=== PATIENT | female | born 1940 | race Caucasian/White ===

== ENCOUNTER 2023-06-26 23:56 | Emergency (ER) | payer MEDICARE, SELFPAY ==
[2023-06-26 23:57] VITALS: BMI 26.6
[2023-06-27] VITALS: BP 156/76
[2023-06-27 00:03] VITALS: BP 156/76
--- NOTE | 2023-06-27 00:35 | ED.GENMED ---
History of Present Illness
General
Chief Complaint: Fall
Source: ambulance crew
Exam Limitations: dementia
Time Seen by Provider: 06/27/23 00:22
Nursing documentation reviewed up to this point in time: agreed with
Travel History
Have you had any contact with someone who has COVID-19?: Unable to Answer
Do you have any symptoms of coronavirus? Fever > 100 degrees, chills, cough, shortness of breath, sore throat, loss of taste or smell, muscle aches, or headache?: Unable to Answer
History of Present Illness
History of Present Illness:
83-year-old female presents emergency department due to a fall. She was found on the floor. Staff stated that patient hit her head. It was an unwitnessed fall. Patient takes Eliquis. Transported by EMS.
Past History
Past History
ED Past Medical History: HTN, Psychiatric (Depression) and Other (Dementia, PNA, UTi)
ED Past Surgical History: Appendectomy
Social History
Tobacco: Non-smoker
Alcohol: Occasional
Drug: None
Personal:
Living: prison ([facility])
Employment: Retired
Family History
Family History: Hypertension; Negative Early CAD
Review of Systems
Review of Systems
Allergies reviewed?: Yes
All Other Systems: Not applicable
Phy Exam
Physical Exam
Physical Exam:
Physical Exam
General: no apparent distress, not acutely ill
Neck: supple. no meningeal signs. normal posterior pharynx
Heart: s1/s2 regular rate and rhythm, no murmur. equal radial
pulses.
HEENT: Pupils equal round reactive to light, EOMI
Lungs: no acute respiratory distress. clear bilaterally
Abdomen: normal bowel sounds. not tender. no CVAT
Neuro: alert and oriented to person. no focal neurological deficits cranial nerves II through XII intact
Skin: no rash
Psychiatric: well kept. interactive and cooperative
Extremities: no edema. no calf tenderness. negative homans. good distal pulses, bilateral leg contractures
Course
Orders/Labs/Results
Orders:
Orders
06/27/23 00:34
CT Cervical Spine W/o Iv Contr Urgent
Comment:
Reason For Exam: fall
06/27/23 00:35
CT Head W/o Iv Contrast Urgent
Comment:
Reason For Exam: fall on eliquis
Vital Signs
Initial and Last Documented VS:
Initial Vital Signs
Temp Pulse Resp BP Pulse Ox
97.4 F 66 22 156/76 96
06/27/23 00:00 06/27/23 00:00 06/27/23 00:00 06/27/23 00:00 06/27/23 00:00
Last Documented Vital Signs
Temp Pulse Resp BP Pulse Ox
97.4 F 72 21 156/76 98
06/27/23 00:00 06/27/23 01:15 06/27/23 01:15 06/27/23 00:03 06/27/23 00:45
MDM/Problems Addressed
Differential Diagnosis Includes:
Intracranial hemorrhage, head contusions
MDM/Problems Addressed:
83-year-old female with unwitnessed fall, mild head contusion. No acute findings on exam otherwise. CT head and cervical spine no acute findings. Stable for discharge.
Chronic conditions affecting care:
Dementia
Acute Exacerbation and/or Progression of Chronic Illness:
Dementia
*Radiology
Radiology exam reviewed: radiology read reviewed (CT head and cervical spine no acute findings)
*Pulse Oximetry
Patient hypoxic: no
*EKG
Interpreted by ED Provider?: NA
*Desktop Publisher Interpretation
Rate: Desktop Publisher- N/A
*Critical Care Note
Total Time (30-74mins, 75-104mins- exclusive of procedures): Not Applicable
Patient Management
Social determinants of health affecting care: Living situation
Escalation/DeEscalation of care consider admission/obs:
Admit not indicated
ED Attending Note
-
Portions of this chart may have been created with voice recognition software.� Occasional wrong word or��sound alike� substitutions may have occurred due to the inherent limitations of voice recognition software.
Discharge Plan
Departure
Patient Disposition: Prison/SNF
Date of Disposition: 06/27/23
Time of Disposition: 01:53
Patient with high blood pressure during this ER visit?: Yes
Condition: Good
Discharge Problem:
Fall, Contusion of head
Instructions: Preventing falls in adults, BLOOD PRESSURE
Prescriptions:
No Action
gabapentin 300 MG capsule
300 mg PO HS
escitalopram oxalate 20 MG tablet
20 mg PO DAILY
bupropion HCl 150 MG tablet sustained-release 12 hr
150 mg PO BID
carvedilol 25 mg tablet
25 mg PO BID
hydrochlorothiazide 50 mg tablet
50 mg PO QPM
lisinopril 40 mg tablet
40 mg PO DAILY
Saccharomyces boulardii [Probiotic (S.boulardii)] 250 mg Capsule
250 mg PO BID
apixaban 5 mg Tablet
5 mg PO BID
sennosides [Senna Laxative] 8.6 mg Tablet
8.6 mg PO HS Qty: 0 0RF
polyethylene glycol 3350 [HealthyLax] 17 gram Powder In Packet
17 g PO DAILY Qty: 0 0RF
ciprofloxacin HCl 500 mg Tablet
500 mg PO BID Qty: 0 0RF
pantoprazole 40 mg Tablet,Delayed Release (Dr/Ec)
40 mg PO DAILY Qty: 0 0RF
docusate sodium 100 mg Capsule
100 mg PO BID Qty: 0 0RF
ferrous sulfate 325 mg (65 mg iron) tablet
325 mg PO DAILY Qty: 60 0RF
acetaminophen 325 MG tablet
1,000 mg PO Q8HPRN PRN (Reason: pain) Qty: 0 0RF
doxycycline hyclate 100 mg capsule
100 mg PO BID Qty: 10 0RF
cyanocobalamin (vitamin B-12) 1,000 mcg tablet
1,000 mcg PO DAILY Qty: 30 0RF
Referrals:
Andrea Swanson MD [Family Provider] - Call in 1-3 days for appt
Interventions
Interventions:
ED- Fall Risk Assessment Last Done: 06/27/23 00:57
ED-Musculoskeletal Assessment Last Done: 06/27/23 00:57
ED- Neurological Assessment Last Done: 06/27/23 00:57
ED-Skin Assessment Last Done: 06/27/23 00:57
== END 2023-06-27 03:23 ==
LOC: EMR 23:56
PROVIDERS: EMERGENCY PHYSICIAN Emergency Medicine; FAMILY PHYSICIAN Family Medicine
DX: S00.03XA Contusion of scalp, initial encounter (principal); W19.XXXA Unspecified fall, initial encounter; I10 Essential (primary) hypertension; F03.93 Unspecified dementia, unspecified severity, with mood disturbance
CPT/HCPCS: 99284; 70450; 72125

== ENCOUNTER 2023-09-09 23:38 | Emergency (ER) | payer MEDICARE, SELFPAY ==
[2023-09-09 23:50] VITALS: BP 123/71
[2023-09-09 23:57] VITALS: BMI 23.3
[2023-09-10] VITALS (8 sets, daily range): BP systolic 95–143; BP diastolic 43–97
--- NOTE | 2023-09-10 03:24 | ED.GENMED ---
History of Present Illness
<BRUNA Hinds - Last Filed: 09/10/23 06:00>
General
Chief Complaint: Change in Mental Status
Source: patient and ambulance crew
Exam Limitations: dementia and other (dysarthria)
Time Seen by Provider: 09/10/23 03:32
Travel History
Have you had any contact with someone who has COVID-19?: Unable to Answer
Do you have any symptoms of coronavirus? Fever > 100 degrees, chills, cough, shortness of breath, sore throat, loss of taste or smell, muscle aches, or headache?: Unable to Answer
History of Present Illness
History of Present Illness:
83 year old female with hx of Alzheimer's, HTN, DM2, wheelchair bound per triage note was BIBA from [facility] with report of change in mental status that occurred just prior to arrival. Pt is reportedly more demented than normal and
her speech is more difficulty to understand than normal. Pt intermittently sleeping on arrival with no complaints. Pt with hx of dysarthria. Per triage note, staff at facility stated that they thought the pt was less responsive and had more slurring
than normal speech. Pt currently denies any complaints. Denies head ache, dizziness, chest pain, SOB, abdominal pain, n/v/d, fevers/chills.
Past History
<BRUNA Hinds - Last Filed: 09/10/23 06:00>
Past History
ED Past Medical History: HTN, Psychiatric (Depression) and Other (Dementia, PNA, UTi)
ED Past Surgical History: Appendectomy
Social History
Tobacco: Non-smoker
Alcohol: Occasional
Drug: None
Personal:
Living: fdc ([facility])
Employment: Retired
Family History
Family History: Hypertension; Negative Early CAD
Review of Systems
<BRUNA Hinds - Last Filed: 09/10/23 06:00>
Review of Systems
Allergies reviewed?: Yes
All Other Systems: ROS reviewed and negative except as documented in HPI and ROS
Constitutional: Reports no symptoms
EENT: Reports no symptoms
Respiratory: Reports no symptoms
Cardiac: Reports no symptoms
ABD/GI: Reports no symptoms
: Reports no symptoms
Musculoskeletal: Reports no symptoms
Skin: Reports no symptoms
Neurological: Reports no symptoms
Endocrine: Reports no symptoms
Hematologic/Lymphatic: Reports no symptoms
Psychiatric: Reports no symptoms
Phy Exam
<BRUNA Hinds - Last Filed: 09/10/23 06:00>
General Physical Exam
General Presentation: well appearing and no apparent distress
General age: appears stated age
General Skin: warm and dry
General Habitus: cachetic, debilitated and elderly
General Mental: alert and usual mental status
General Hydration: dry mucous membranes
General Chronic Disability: contractures (bilateral lower extremities), demented, diapers and non ambulatory
Cardiovascular Exam
Cardiovascular Exam: regular rate/rhythm, no edema, no gallop, no murmur and normal peripheral pulses
Pulmonary Exam
Pulmonary Exam: lungs clear, no respiratory distress, no rales, no crackles, no rhonchi, no wheezing and no cough
Neurological Exam
Neurological Exam: alert, oriented x3 and dysarthric
Musculoskeletal Exam
Musculoskeletal Exam: other (bilateral lower extremities contracted)
Skin Exam
Skin Exam: normal color and warm/dry
Psychiatric Exam
Psychiatric Exam: normal mood/affect
Course
<BRUNA Hinds - Last Filed: 09/10/23 06:00>
Orders/Labs/Results
Orders:
Orders
09/10/23 03:45
CT Head W/o Iv Contrast Urgent
Comment:
Reason For Exam: change in MS, increased confusion
Vital Signs
Initial and Last Documented VS:
Initial Vital Signs
Temp Pulse Resp BP Pulse Ox
98.2 F 75 19 123/71 97
09/09/23 23:50 09/09/23 23:50 09/09/23 23:50 09/09/23 23:50 09/09/23 23:50
Last Documented Vital Signs
Temp Pulse Resp BP Pulse Ox
98.2 F 75 19 123/65 96
09/09/23 23:50 09/09/23 23:50 09/09/23 23:50 09/10/23 01:21 09/10/23 01:21
<Anjelica El DO - Last Filed: 09/10/23 05:51>
Orders/Labs/Results
Orders:
Orders
09/10/23 03:45
CT Head W/o Iv Contrast Urgent
Comment:
Reason For Exam: change in MS, increased confusion
Vital Signs
Initial and Last Documented VS:
Initial Vital Signs
Temp Pulse Resp BP Pulse Ox
98.2 F 75 19 123/71 97
09/09/23 23:50 09/09/23 23:50 09/09/23 23:50 09/09/23 23:50 09/09/23 23:50
Last Documented Vital Signs
Temp Pulse Resp BP Pulse Ox
98.2 F 75 19 123/65 96
09/09/23 23:50 09/09/23 23:50 09/09/23 23:50 09/10/23 01:21 09/10/23 01:21
<BRUNA Hinds - Last Filed: 09/10/23 06:00>
MDM/Problems Addressed
Differential Diagnosis Includes:
dysarthria, dementia
MDM/Problems Addressed:
83 year old female BIBA form [facility] with reports of altered mental status.
Chronic conditions affecting care: DM, HTN, Neurological disorder (Alzheimer's dementia) and Other (wheelchair bound)
<BRUNA Hinds - Last Filed: 09/10/23 06:00>
*Critical Care Note
Total Time (30-74mins, 75-104mins- exclusive of procedures): Not Applicable
ED Attending Note
<BRUNA Hinds - Last Filed: 09/10/23 06:00>
-
Portions of this chart may have been created with voice recognition software.� Occasional wrong word or��sound alike� substitutions may have occurred due to the inherent limitations of voice recognition software.
<Anjelica El DO - Last Filed: 09/10/23 05:51>
ED Attending Note
Patient seen and examined by attending physician: Yes
I performed the substantive portion of visit, reviewed & personally made and approve the management plan that is documented in note by myself or EDGAR.: Yes
I performed a history and physical exam of patient and discussed management with resident, I reviewed resident's note and agree with documented findings and plan of care.: Yes
ED Attending Note:
This is a gracie 83-year-old woman who has history of dementia, chronic resident of [facility]. She is sent to the ED by fdc staff for concern for increased confusion, more so than her baseline and concern for some
slurred speech more pronounced than her baseline slurred/mildly garbled speech.
There has been no report of fall, no report of fever nor GI illness nor URI.
Upon arrival to the ED patient is awake and alert, pleasant, offers no complaints. She is unsure why she was sent to the ED but she denies recent fall, she is oriented x 3.
She states her appetite has been good, she has had no vomiting nor diarrhea. She denies chest pain, no coughing or shortness of breath.
GENERAL: 83-year-old woman appears her stated age, she is bright and alert, pleasant, appears in no acute distress. Appears somewhat chronically debilitated, bedbound but overall in no distress.
EYE: pupils equal and reactive. anicteric. The head is normocephalic, atraumatic.
NECK: Supple, nontender, no meningismus, no significant adenopathy.
ENT: posterior pharynx is clear, oral mucosa is moist. Minimally dry. Nares are patent without rhinorrhea.
CARDIAC: Regular rate and rhythm. no murmur.
LUNGS: Clear breath sounds bilaterally, no acute respiratory distress, no wheezes/rales/rhonchi
ABDOMEN: Soft, nondistended, without focal tenderness, no r/g, no cvat. normoactive BS.
NEUROLOGICAL: Alert and oriented x3, motor strength is 5/5 bilateral upper extremities. Bilateral lower extremities are chronically flexed/contracted.
SKIN: Warm and dry, normal color, skin intact. No rash.
MUSCULOSKELETAL: Bilateral lower extremities chronically flexed/contracted. No C/C/E. peripheral pulses are full and equal b/l. No palpable tenderness.
PSYCH: Normal and appropriate interaction.
83-year-old from [facility] presents via EMS with concern for increased confusion and slurred speech. Patient is bright and alert, oriented x 3.
She is noted to have a very minimally garbled speech but she is completely understandable.
She has consumed a cup of water, no difficulty swallowing and when lips and tongue are moist and her speech is much clearer.
Vital signs are stable, she is afebrile, normotensive.
I suspect patient is at her baseline. Will check CT of the head. If this is stable and unchanged we will plan to discharge back to [facility]dc for continued care.
09/10/2023 0549 AM
Patient remains bright and alert, no complaints and appears to be at her baseline.
CAT scan shows chronic microvascular disease but similar and unchanged from previous CT.
Will discharge back to the fdc for continued care.
Discharge Plan
Departure
Patient Disposition: Care Home/SNF
Date of Disposition: 09/10/23
Time of Disposition: 05:49
Patient with high blood pressure during this ER visit?: No
Condition: Good
Discharge Problem:
stable mild dementia
Instructions: Dementia (DC)
Prescriptions:
No Action
gabapentin 300 MG capsule
300 mg PO HS
escitalopram oxalate 20 MG tablet
20 mg PO DAILY
bupropion HCl 150 MG tablet sustained-release 12 hr
150 mg PO BID
carvedilol 25 mg tablet
25 mg PO BID
hydrochlorothiazide 50 mg tablet
50 mg PO QPM
lisinopril 40 mg tablet
40 mg PO DAILY
Saccharomyces boulardii [Probiotic (S.boulardii)] 250 mg Capsule
250 mg PO BID
apixaban 5 mg Tablet
5 mg PO BID
sennosides [Senna Laxative] 8.6 mg Tablet
8.6 mg PO HS Qty: 0 0RF
polyethylene glycol 3350 [HealthyLax] 17 gram Powder In Packet
17 g PO DAILY Qty: 0 0RF
ciprofloxacin HCl 500 mg Tablet
500 mg PO BID Qty: 0 0RF
pantoprazole 40 mg Tablet,Delayed Release (Dr/Ec)
40 mg PO DAILY Qty: 0 0RF
docusate sodium 100 mg Capsule
100 mg PO BID Qty: 0 0RF
ferrous sulfate 325 mg (65 mg iron) tablet
325 mg PO DAILY Qty: 60 0RF
acetaminophen 325 MG tablet
1,000 mg PO Q8HPRN PRN (Reason: pain) Qty: 0 0RF
doxycycline hyclate 100 mg capsule
100 mg PO BID Qty: 10 0RF
cyanocobalamin (vitamin B-12) 1,000 mcg tablet
1,000 mcg PO DAILY Qty: 30 0RF
Referrals:
Andrea Swanson MD [Family Provider] - Call in 1-3 days for appt
Interventions
Interventions:
*Risk Screen - Suicide Last Done: 09/09/23 23:50
*General Assessment Last Done: 09/09/23 23:50
*Neglect/Abuse Screening Last Done: 09/09/23 23:50
ED- Neurological Assessment Last Done: 09/09/23 23:57
ED Swallowing Screen Last Done: 09/09/23 23:57
Discharge Date and Time
Print Language: YAKUT
== END 2023-09-10 06:57 ==
LOC: EMR 23:38
PROVIDERS: EMERGENCY PHYSICIAN Emergency Medicine; FAMILY PHYSICIAN Family Medicine
DX: F02.A3 Dementia in other diseases classified elsewhere, mild, with mood disturbance (principal); R47.81 Slurred speech; G30.9 Alzheimer's disease, unspecified; I10 Essential (primary) hypertension; E11.9 Type 2 diabetes mellitus without complications; F32.A Depression, unspecified; M62.48 Contracture of muscle, other site; Z99.3 Dependence on wheelchair; Z87.440 Personal history of urinary (tract) infections; Z87.01 Personal history of pneumonia (recurrent); Z74.01 Bed confinement status
CPT/HCPCS: 99284; 70450

== ENCOUNTER 2023-09-28 03:02 | Inpatient (IN) | payer MEDICARE, SELFPAY ==
[2023-09-27 23:35] VITALS: BP 115/80; BMI 22.7
[2023-09-27 23:38] VITALS: BP 115/80
[2023-09-28] VITALS (9 sets, daily range): BP systolic 109–155; BP diastolic 56–78; BMI 21.8; BMI 20.7
--- NOTE | 2023-09-28 00:08 | ED.GENMED ---
History of Present Illness
General
Chief Complaint: Breathing Problem
Time Seen by Provider: 09/27/23 23:45
Travel History
Have you had any contact with someone who has COVID-19?: Unable to Answer
Do you have any symptoms of coronavirus? Fever > 100 degrees, chills, cough, shortness of breath, sore throat, loss of taste or smell, muscle aches, or headache?: Unable to Answer
History of Present Illness
History of Present Illness:
83 yo female w/ hx of dementia presents to the Emergency Department for evaluation of reported respiratory distress. per EMS report, pt had resp distress at 1900 tonight, received DuoNeb x 2 which resolved symptoms. Unclear why pt was not sent to ED
for >4 hours from onset of symptoms. History is limited due to her dementia, she offers no complaints. She denies any SOB or cough at this time. VS normal on arrival
Past History
Past History
ED Past Medical History: HTN, Psychiatric (Depression) and Other (Dementia, PNA, UTi)
ED Past Surgical History: Appendectomy
Social History
Tobacco: Non-smoker
Alcohol: Occasional
Drug: None
Personal:
Living: fdc ([facility])
Employment: Retired
Family History
Family History: Hypertension; Negative Early CAD
Review of Systems
Review of Systems
Allergies reviewed?: Yes
All Other Systems: ROS reviewed and negative except as documented in HPI and ROS
Phy Exam
Physical Exam
Physical Exam:
GEN: Well appearing, NAD, WDWN
HEENT: Oral mucosa moist, no scleral icterus
Cardiac: Regular rate and rhythm
Lung: No respiratory distress, no tachypnea, lungs CTAB, no wheezes/rales/rhonchi
MSK: No gross deformity or injuries
Skin: Good color, no pallor or jaundice, no rashes
Neuro: Alert, follows commands, moves all extremities freely
Psych: Calm, cooperative
Scores
Heart Failure Risk
Heart Failure Risk Score: Not Applicable
Course
Orders/Labs/Results
Orders:
Orders
09/28/23 00:00
CR Chest - 2 Views Urgent
Reason For Exam: SOB
09/28/23 00:39
Electrocardiogram (*1) Urgent
Reason for Study: Shortness of Breath
EKG- Treatment ONCE
09/28/23 00:51
Complete Blood Count/With Diff Urgent
Comprehensive Metabolic Panel Urgent
09/28/23 01:16
Type+Screen Urgent
Pantoprazole [Protonix IV] 80 mg IV NOW STA
09/28/23 01:28
Ipratropium/Albuterol Sulfate [Duoneb] 3 ml INH R NOW ONE
09/28/23 01:30
Pantoprazole 80 mg/100 ml Nss [Protonix] 80 mg in 100 ml IV Q10H
Abnormal Lab Results
09/28/23
00:51
RBC 2.62 L 10^6/uL
(4.20-5.40)
Hgb 8.1 L g/dL
(12.0-16.0)
Hct 24.6 L %
(37.0-47.0)
MCHC 32.9 L g/dL
(33.0-37.0)
Lymphocytes % 19.4 L %
(20.5-51.1)
BUN 39 H mg/dl
(7-17)
Creatinine 1.5 H mg/dL
(0.6-1.0)
Glucose 100 H mg/dl
(70-99)
09/28/23 00:51
09/28/23 00:51
Vital Signs
Initial and Last Documented VS:
Initial Vital Signs
Temp Pulse Resp BP Pulse Ox
98.2 F 75 22 115/80 97
09/27/23 23:35 09/27/23 23:35 09/27/23 23:35 09/27/23 23:35 09/27/23 23:35
Last Documented Vital Signs
Temp Pulse Resp BP Pulse Ox
98.2 F 78 23 111/59 98
09/27/23 23:35 09/28/23 01:00 09/28/23 01:00 09/28/23 01:00 09/28/23 00:15
MDM/Problems Addressed
MDM/Problems Addressed:
83 yo female w/ dementia sent in for SOB, lungs clear on exam and CXR unremarkable. Labs show acute decrease in Hgb, further assessment reveals maroon heme positive stool. Concern for lower GI bleed in an anticoagulated patient. PPI initiated for
gastric protection for any associated UGI bleed, will admit for further evaluation and management. Clinically stable, no indication for transfusion at this time
*Critical Care Note
Total Time (30-74mins, 75-104mins- exclusive of procedures): Not Applicable
ED Attending Note
-
Portions of this chart may have been created with voice recognition software.� Occasional wrong word or��sound alike� substitutions may have occurred due to the inherent limitations of voice recognition software.
Discharge Plan
Departure
Patient Disposition: Admit
Date of Disposition: 09/28/23
Time of Disposition: 01:33
Admit to: Med/Surg
Presentation/result/management discussed w/ accepting MD/DO: Hospitalist
Patient with high blood pressure during this ER visit?: No
Discharge Problem:
Acute lower GI bleeding
Prescriptions:
No Action
gabapentin 300 MG capsule
300 mg PO HS
escitalopram oxalate 20 MG tablet
20 mg PO DAILY
bupropion HCl 150 MG tablet sustained-release 12 hr
150 mg PO BID
carvedilol 25 mg tablet
25 mg PO BID
hydrochlorothiazide 50 mg tablet
50 mg PO QPM
lisinopril 40 mg tablet
40 mg PO DAILY
Saccharomyces boulardii [Probiotic (S.boulardii)] 250 mg Capsule
250 mg PO BID
apixaban 5 mg Tablet
5 mg PO BID
sennosides [Senna Laxative] 8.6 mg Tablet
8.6 mg PO HS Qty: 0 0RF
polyethylene glycol 3350 [HealthyLax] 17 gram Powder In Packet
17 g PO DAILY Qty: 0 0RF
ciprofloxacin HCl 500 mg Tablet
500 mg PO BID Qty: 0 0RF
pantoprazole 40 mg Tablet,Delayed Release (Dr/Ec)
40 mg PO DAILY Qty: 0 0RF
docusate sodium 100 mg Capsule
100 mg PO BID Qty: 0 0RF
ferrous sulfate 325 mg (65 mg iron) tablet
325 mg PO DAILY Qty: 60 0RF
acetaminophen 325 MG tablet
1,000 mg PO Q8HPRN PRN (Reason: pain) Qty: 0 0RF
doxycycline hyclate 100 mg capsule
100 mg PO BID Qty: 10 0RF
cyanocobalamin (vitamin B-12) 1,000 mcg tablet
1,000 mcg PO DAILY Qty: 30 0RF
Referrals:
Andrea Swanson MD [Family Provider] -
Interventions
Interventions:
*Risk Screen - Suicide Last Done: 09/27/23 23:40
*General Assessment Last Done: 09/27/23 23:40
*Neglect/Abuse Screening Last Done: 09/27/23 23:40
*ED COVID-19 Vaccine History Last Done: 09/27/23 23:40
ED- Cardiac Assessment Last Done: 09/27/23 23:45
ED- Pulmonary Assessment Last Done: 09/27/23 23:45
Discharge Date and Time
Print Language: BENINESE
[2023-09-28 00:55] LABS: % Basophils 0.2 % (0-2); % Eosinophils 2.3 % (0-6); % Immature Granulocytes 0.3 % (0-0.5); % Lymphocytes 19.4 % (20.5-51.1); % Neutrophils 71.8 % (42.2-75.2); Absolute Eosinophils 0.2 10^3/uL (0-0.7); Absolute Lymphocytes 1.7 10^3/uL (1.2-3.4); Absolute Monocytes 0.5 10^3/uL (0.1-0.6); Absolute Neutrophils 6.3 10^3/uL (1.4-6.5); Hematocrit 24.6 % (37.0-47.0); Hemoglobin 8.1 g/dL (12.0-16.0); Mean Corp Hgb Conc. 32.9 g/dL (33.0-37.0); Mean Corpuscular Hgb 30.9 pg (27.0-31.0); Mean Corpuscular Volume 93.9 fL (81.0-99.0); Mean Platelet Volume 9.6 fL (7.4-10.4); Nucleated Red Blood Cells % 0 %; Platelet Count 318 10^3/uL (130-400); Red Blood Cell Count 2.62 10^6/uL (4.20-5.40); Red Cell Dist. Width 12.6 % (11.5-14.5); White Blood Cell Count 8.8 10^3/uL (4.8-10.8)
[2023-09-28 01:19] LABS: ALT (SGPT) < 10 U/L (0-35); AST (SGOT) 18 U/L (14-36); Albumin 3.7 g/dl (3.5-5.0); Alkaline Phosphatase 76 U/L (38-126); Blood Urea Nitrogen 39 mg/dl (7-17); Calcium 9.4 mg/dl (8.4-10.2); Carbon Dioxide 26 mmol/L (22-30); Chloride 103 mmol/L (98-107); Estimated Creatinine Clearance 25 ml/min; Glucose 100 mg/dl (70-99); Potassium 4.6 mmol/L (3.5-5.1); Sodium 136 mmol/L (135-145); Total Bilirubin 0.3 mg/dl (0.2-1.3); Total Protein 6.3 g/dl (6.3-8.2); eGFR 34.58
[2023-09-28] MEDS: PROTONIX IV 80 MG IV (01:36)
[2023-09-28] MEDS: PROTONIX 100 IV (01:39)
[2023-09-28] MEDS: DUONEB 3 ML INH (01:46)
--- NOTE | 2023-09-28 02:55 | HPS.HSE ---
Family Physician
-
Family Physician: Andrea Swanson
Chief Complaint
-
'Respiratory Distress'
History of Present Illness
Patient is an 83y F with PMH significant for hypertension, neuropathy and dementia who presents to ED from local dementia care unit for evaluation of reported respiratory distress. Report from facility is that patient became SOB this evening.
She was apparently treated there with albuterol neb and her symptoms resolved. Several hours later she was sent to the ED for evaluation. Patient is unable to provide historical detail due to baseline dementia. At the time of my exam, she is
awake and alert and denies any complaints. She cannot state why she is in the hospital.
Work-up in the ED was unremarkable in regards to any respiratory issues / complaints.
Patient was noted to be slightly more anemic than baseline and stool was noted to be maroon / heme positive ad thus she is referred for hospitalization.
Medical History
Past Medical History
Past Medical History: Reports Other
Additional Past Medical History:
Hypertension
Senile Dementia
Anxiety / Depression
Peripheral Neuropathy
Osteoarthritis
History of PE
Anemia of Chronic Disease
Past Surgical History: Reports Appendectomy and Other
Social History
Unable to obtain full social history at this time due to: Dementia
Family History
Family History: Not pertinent
Allergies / Home Medications
Allergies reflects when Allergies were last updated in [facility].
Home Medications with original date entered in [facility]
Allergy/Medication List:
Allergies
Allergy/AdvReac Type Severity Reaction Status Date / Time
No Known Allergies Allergy Verified 06/27/23 00:09
Home Medications
bupropion HCl 150 mg tablet,12 hr sustained-release 150 mg PO BID Mental Health/Anxiety 04/17/21
escitalopram oxalate 20 mg tablet 20 mg PO DAILY Mental Health/Anxiety 04/17/21
gabapentin 300 mg capsule 300 mg PO BID neuropathy 04/17/21
Saccharomyces boulardii 250 mg capsule (Probiotic (S.boulardii)) 250 mg PO BID Supplement 11/25/22
apixaban 5 mg tablet 5 mg PO BID Autoimmune Disorder 11/25/22
carvedilol 25 mg tablet 25 mg PO BID Heart Failure 11/25/22
hydrochlorothiazide 50 mg tablet 50 mg PO DAILY Fluid Retention/Swelling 11/25/22
lisinopril 40 mg tablet 40 mg PO DAILY Blood Pressure 11/25/22
acetaminophen 325 mg tablet 1,000 mg (3.0769 x 325 mg) PO Q8HPRN PRN pain #0 tabs 11/28/22
albuterol sulfate 2.5 mg/3 mL (0.083 %) solution for nebulization 2.5 mg inhalation Q6H PRN wheezing 09/28/23
alprazolam 0.25 mg tablet 0.25 mg PO TID PRN anxiety 09/28/23
celecoxib 200 mg capsule 200 mg PO BID 09/28/23
cholecalciferol (vitamin D3) 50 mcg (2,000 unit) capsule (Vitamin D3) 50 mcg PO DAILY vitamin D deficiency 09/28/23
gabapentin 400 mg capsule 400 mg PO HS 09/28/23
Review of Systems
-
History Source: Patient
A 12 point ROS was completed and negative except as noted: Yes
Constitutional: Denies Fever or Chills
Respiratory: Denies Cough or Trouble Breathing
Cardiac: Denies Chest Pain or Palpitations
Abdomen/GI: Denies Abdominal Pain, Nausea, Vomiting or Diarrhea
: Denies Dysuria or Frequency
Neurological: Denies Dizzy or Headache
Psych: Denies Depression or Anxiety
Physical Exam
Vital Signs
Vital Signs
Temp Pulse Resp BP Pulse Ox
98.2 F 75 25 122/64 96
09/27/23 23:35 09/28/23 02:30 09/28/23 02:30 09/28/23 02:00 09/28/23 02:15
Physical Exam
General: Other (83y F in no acute distress.)
HEENT: Moist mucous membranes and PERRLA
Respiratory: Clear; No Wheezes, Rales or Rhonchi
Cardiac: S1/S2 and Regular Rhythm; No Murmur
GI: Soft, Non Tender, Non Distended and Normal Bowel Sounds
Musculoskeletal: No Clubbing, No Cyanosis and Other (Trace edema at ankles bilaterally. )
Neuro: Awake and Alert; No Oriented
Laboratory Results
-
09/28/23 00:51
09/28/23 00:51
Laboratory Results
Total Bilirubin 0.3 mg/dl (0.2-1.3) 09/28/23 00:51
AST 18 U/L (14-36) 09/28/23 00:51
ALT < 10 U/L (0-35) 09/28/23 00:51
Alkaline Phosphatase 76 U/L (38-126) 09/28/23 00:51
Impression/Plan
-
A/P: Patient is an 83y F with PMH significant for dementia, hypertension and chronic anemia who was sent to ED for evaluation of dyspnea and incidentally noted to have heme positive stool.
Heme Positive Stool
Acute on Chronic Anemia
- Admit for further evaluation and treatment.
- Hgb is currently 8.1 with an established baseline of 9 - 10 g/dL.
- She had a single value of > 10 in the past 2 years.
- Stool today noted to be heme positive on Eliquis.
- Will hold Eliquis for now.
- Follow H&H.
- No need for PPI infusion in patient without known or suspected varices and with maroon stools - change to BID for now.
- GI evaluation. ? endoscopic evaluation if family is amenable.
Respiratory Distress
- This was the reported reason for ED evaluation.
- Not hypoxemic. No complaints of dyspnea or evident SOB during her stay here.
- CXR unremarkable.
- Follow for any new / recurrent symptoms.
SHUBHAM on CKD
- SCr = 1.5 compared to baseline of 0.9.
- Hold high-dose thiazide diuretic and lisinopril acutely.
- Gentle IVFs overnight.
- Follow for return to baseline renal function.
Benign Hypertension
- Stable. Holding meds acutely as noted above.
Senile Dementia
- Patient appears at described baseline.
- Continue current med regimen and monitor for evidence of acute delirium.
History of PE
DVT Prophylaxis
- Hold Eliquis acutely given heme positive stools.
- SCDs for now.
Code Status: DNR
--- NOTE | 2023-09-28 03:16 | EDRN ---
This RN with assist of 2 changed pt out of her clothing into a hospital gown. Pt keeps stating her is walking around here lost somewhere and that she is not staying in the hospital 'I have to go home.' Explained to pt why she is staying in
the hospital but she does not agree with the reason. 'I'm fine. I just have to go home.' Pre-hospital linen removed from underneath pt. Pt incontinent of urine - perineal care provided and diaper changed. No stool/blood in diaper. Checked
rectal temp because pt felt hot = 98.7. Pt lying on stretcher with her legs crossed at her knees - LLE is on right side of stretcher and RLE on left side of stretcher.
--- NOTE | 2023-09-28 04:41 | EDRN ---
About 20 minutes ago, this RN came into room to answer pt call grigsby and found pt with her name modesto crumpled in her R hand holding the 24g IV catheter from her L wrist with protonix infusing also in her hand. Pt has multiple large areas of
blood on her gown. Both IV sites were no longer bleeding. Pt removed both her IVs but adamantly denies doing so. This RN cleaned pt up, put pt in new gown and attempted iv access couple times without success. VAT called for iv access and will be
down.
--- NOTE | 2023-09-28 04:47 | EDRN ---
VAT at bedside
--- NOTE | 2023-09-28 04:59 | EDRN ---
VAT inserted #[id number] R hand on second attempt - protonix restarted infusing. Covered site with web gauze. Floor called and updated on IV situation.
[2023-09-28] MEDS: NSS 1000 IV ×2 (06:17→22:59)
[2023-09-28 06:59] LABS: Hematocrit 22.7 % (37.0-47.0); Hemoglobin 7.5 g/dL (12.0-16.0); Mean Corpuscular Hgb 31.5 pg (27.0-31.0); Mean Corpuscular Volume 95.4 fL (81.0-99.0); Mean Platelet Volume 9.8 fL (7.4-10.4); Platelet Count 283 10^3/uL (130-400); Red Blood Cell Count 2.38 10^6/uL (4.20-5.40); Red Cell Dist. Width 12.7 % (11.5-14.5); White Blood Cell Count 7.4 10^3/uL (4.8-10.8)
[2023-09-28 07:07] LABS: Blood Urea Nitrogen 39 mg/dl (7-17); Calcium 9.1 mg/dl (8.4-10.2); Carbon Dioxide 24 mmol/L (22-30); Chloride 104 mmol/L (98-107); Estimated Creatinine Clearance 25 ml/min; Glucose 93 mg/dl (70-99); Potassium 4.2 mmol/L (3.5-5.1); Sodium 136 mmol/L (135-145); eGFR 34.58
[2023-09-28] MEDS: LEXAPRO 20 MG PO (09:22)
[2023-09-28] MEDS: NEURONTIN 300 MG PO (09:22)
[2023-09-28] MEDS: WELLBUTRIN SR (12 hour sustained release) 150 MG PO ×2 (09:22→20:01)
[2023-09-28] MEDS: COREG 25 MG PO ×2 (09:22→19:37)
--- NOTE | 2023-09-28 09:43 | W.PN.HOSP.TC ---
Today's Communication/Plan
-
see bold
Assessment / Plan
Assessment / Plan
83y F with PMH significant for dementia, hypertension and chronic anemia who was sent to ED for evaluation of dyspnea and incidentally noted to have heme positive stool.
Heme Positive Stool
Acute on Chronic Anemia
-Hemoglobin 7.2, was 8.1 yesterday, baseline greater 9-10
-GI following, continue Protonix 40 mg IV twice daily
-Transfuse for hemoglobin less than 7 point
Severe constipation
-Appreciate GI input, continue laxatives and enema as per GI
Respiratory Distress
- This was the reported reason for ED evaluation.
- Not hypoxemic. No complaints of dyspnea or evident SOB during her stay here.
- CXR unremarkable.
SHUBHAM on CKD
- SCr = 1.5 compared to baseline of 0.9.
- Hold high-dose thiazide diuretic and lisinopril acutely.
- Gentle IVFs, trend Cr
Benign Hypertension
- Stable. Holding meds acutely as noted above.
Senile Dementia
- Patient appears at described baseline.
- Continue current med regimen and monitor for evidence of acute delirium.
History of PE
DVT Prophylaxis
- Hold Eliquis acutely given heme positive stools.
- SCDs for now.
DVT prophylaxis�SCDs
Code Status - DNR
Physical Exam
General: No acute distress
HEENT: Normocephalic, Atraumatic, EOMI, MMM
Respiratory: Clear to Auscultation bilaterally
Cardiac: Normal S1/S2, Regular Rate and Rhythm
GI: Soft, Nontender, Nondistended, Normal Bowel Sounds
Extremities: No Clubbing, Cyanosis, or Edema
Neuro: Pleasantly confused
Psych: Calm, Cooperative
Derm: No Visible lesions
Anticipated Discharge: 24 - 48 hours
Subjective/Interval History
-
Date of Service: September 28, 2023
Nursing staff reports patient had an episode of burgundy stool. No lightheadedness, no dizziness.
Objective Data
-
Labs:
Laboratory Results
09/28/23 09/28/23
00:51 06:36
WBC 8.8 7.4
Hgb 8.1 L 7.5 L
Hct 24.6 L 22.7 L
Plt Count 318 283
Sodium 136 136
Potassium 4.6 4.2
Chloride 103 104
Carbon Dioxide 26 24
BUN 39 H 39 H
Creatinine 1.5 H 1.5 H
Glucose 100 H 93
Calcium 9.4 9.1
Total Bilirubin 0.3
AST 18
ALT < 10
Alkaline Phosphatase 76
Vital Signs:
Vital Signs
Temp Pulse Resp BP Pulse Ox
98.2 F 75 18 144/78 96
09/28/23 07:00 09/28/23 07:00 09/28/23 07:00 09/28/23 07:00 09/28/23 07:00
--- NOTE | 2023-09-28 10:11 | CON.GI ---
Addendum entered and electronically signed by Dulce Sanchez MD 09/28/23 15:35:
I saw and examined the patient.
The ONLINE PROJECT MANAGER's note was reviewed and I agree with the note.
83-year-old female with past medical history of dementia, depression, UTI, PE (on Eliquis), hypertension, peripheral neuropathy, osteoarthritis, anemia of chronic disease and hiatal hernia presents to the emergency room from half-way with
respiratory distress/shortness of breath. Patient was treated with DuoNeb, dose of pantoprazole labs were performed as well as chest x-ray and she was sent back to half-way. She was sent back to the emergency room 2 hours later. She was noted
to be slightly more anemic than baseline and stool was noted to be maroon/heme positive in the ER. She was referred for admission. We are asked to evaluate for the same. Patient is on Eliquis for history of PE. Unfortunately patient is demented
only oriented to self. Hemoglobin 7.5 down from 8.1, WBC 7.4, platelet 283, sodium 136, potassium 4.2, chloride 104, CO2 24, BUN 39, creatinine 1.5, glucose 93, total bilirubin 0.3, AST 18, ALT less than 10, alk phos 76
Impression:
Anemia/Maroon stool
Constipation -rectal stool burden
Chronic anticoagulation (Eliquis) history of PE
Dementia
plan
Continue monitor H&H
check iron panel
Okay with liquid diet
Daily bowel regimen
Discussed with patient's daughter by ONLINE PROJECT MANAGER-would like to hold off on future endoscopic procedures considering her age/comorbidities
Repeat abdominal x-ray in a.m. if continues to have stool burden we will give milk and molasses enema tomorrow
Addendum entered and electronically signed by YULIYA Marmolejo 09/28/23 12:22:
Discussed with daughter Tana [phone], who states that 20 years ago she had blood in her stools and that she thinks that her last colonoscopy was also about 20 years ago as well. She does not think that they found anything. Discussed
possibility of endoscopic procedures and she would like to hold at this time. Patient had large rectal fecal burden. Will initiate miralax, dulcolax suppository today. Then will give milk and molasses enema tomorrow after Eliquis off > 24 hrs.
Repeat imaging tomorrow afternoon.Patient also recently started on Celebrex for and hx of lower extremity severe contractures. No fam hx colon cancer/GI malignancy or IBD. Discussed with Dr. Elisa Garcias as well who also discussed with the patient
daughter earlier. Will keep patient on clears for now.
Original Note:
Consultation
-
Date/Time Consultation Requested: 09/28/23 0532
Date/Time Consultation Performed: 09/28/23 1000
Requesting Provider: Dr. Maldonado
Performing Provider: Dr. Sanchez/YULIYA Prado
Reason for Consultation: maroon stool/anemia
Medical History
Chief Complaint / HPI
Chief Complaint: SOB
History of Present Illness:
83-year-old female with past medical history of dementia, depression, UTI, PE (on Eliquis), hypertension, peripheral neuropathy, osteoarthritis, anemia of chronic disease and hiatal hernia presents to the emergency room from half-way with
respiratory distress/shortness of breath. Patient was treated with DuoNeb, dose of pantoprazole labs were performed as well as chest x-ray and she was sent back to half-way. She was sent back to the emergency room 2 hours later. She was noted
to be slightly more anemic than baseline and stool was noted to be maroon/heme positive in the ER. She was referred for admission. We are asked to evaluate for the same. Patient is on Eliquis for history of PE. Unfortunately patient is demented
only oriented to self. She does not recognize herself to be in the hospital. She cannot tell me the year. She thinks she is in a department store. She identifies only family is 'sisters'. She does have 2 daughters. At the present time she is
lying in the bed in no apparent distress. She is smiling. Appears very comfortable. Has had no signs of bleeding since arrival. Hemoglobin is currently 7.5 down from 8.1 on arrival. Her hemoglobin can range anywhere from 8.5-10.5 baseline. Her
BUN and creatinine are elevated compared to her baseline. Chest x-ray performed shows large hiatal hernia again seen. Minor left basilar opacity more likely representing subsegmental atelectasis. In addition to patient's Eliquis in the nursing
home it appears she is also on Celebrex twice daily. She is not on PPI. There is no GI history in chart. I did try to call patient's daughter Prem [phone] there was no answer. I also tried to call her other secondary contact
daughter Christina Mario [phone] there was no answer as well. At the present time patient denies any fevers, chills, nausea, vomiting. She cannot tell you her bowel colors. She denies any abdominal pain. She is sitting in bed smiling. She
elicits no discomfort with palpation of abdomen.
Past Medical History
Past Medical History: HTN and Other (Dementia, anxiety, peripheral neuropathy, osteoarthritis, PE, anemia chronic disease, hiatal hernia)
Past Surgical History: Appendectomy
Social History
Tobacco: Non-Smoker
Alcohol: None
Drug: None
Living: Long Term
Employment: Retired
Family History
Family History: Unable to Obtain (Patient with dementia)
Allergies / Home Medications
Allergy/AdvReac Type Severity Reaction Status Date / Time
No Known Allergies Allergy Verified 06/27/23 00:09
�Medication �Instructions �Recorded
bupropion HCl 150 mg tablet,12 hr 150 mg PO BID Mental Health/Anxiety 04/17/21
sustained-release
escitalopram oxalate 20 mg tablet 20 mg PO DAILY Mental 04/17/21
Health/Anxiety
gabapentin 300 mg capsule 300 mg PO BID neuropathy 04/17/21
Saccharomyces boulardii 250 mg 250 mg PO BID Supplement 11/25/22
capsule (Probiotic (S.boulardii))
apixaban 5 mg tablet 5 mg PO BID Autoimmune Disorder 11/25/22
carvedilol 25 mg tablet 25 mg PO BID Heart Failure 11/25/22
hydrochlorothiazide 50 mg tablet 50 mg PO DAILY Fluid 11/25/22
Retention/Swelling
lisinopril 40 mg tablet 40 mg PO DAILY Blood Pressure 11/25/22
acetaminophen 325 mg tablet 1,000 mg (3.0769 x 325 mg) PO 11/28/22
Q8HPRN PRN pain #0 tabs
albuterol sulfate 2.5 mg/3 mL 2.5 mg inhalation Q6H PRN wheezing 09/28/23
(0.083 %) solution for nebulization
alprazolam 0.25 mg tablet 0.25 mg PO TID PRN anxiety 09/28/23
celecoxib 200 mg capsule 200 mg PO BID 09/28/23
cholecalciferol (vitamin D3) 50 50 mcg PO DAILY vitamin D 09/28/23
mcg (2,000 unit) capsule (Vitamin deficiency
D3)
gabapentin 400 mg capsule 400 mg PO HS 09/28/23
Review of Systems
-
Unable to obtain full review of systems at this time due to: Dementia
Vital Signs
Temp Pulse Resp BP Pulse Ox
98.2 F 75 18 144/78 96
09/28/23 07:00 09/28/23 07:00 09/28/23 07:00 09/28/23 07:00 09/28/23 07:00
Physical Exam
Exam
General: No Apparent Distress
HEENT: Anicteric
Respiratory: Clear
Cardiac: Regular Rhythm
GI: Soft, Non Tender, Non Distended and Normal Bowel Sounds
Musculoskeletal: Other (Extremities crossed at the knees, contractured)
Skin: Warm and Dry
Neuro: Awake, Alert and Oriented (to person)
Psych: Calm and Confused
Results
WBC 7.4 10^3/uL (4.8-10.8) 06/17/24 06:36
Hgb 7.5 g/dL (12.0-16.0) L 09/28/23 06:36
Hct 22.7 % (37.0-47.0) L 09/28/23 06:36
MCV 95.4 fL (81.0-99.0) 09/28/23 06:36
Plt Count 283 10^3/uL (130-400) 09/28/23 06:36
Absolute Neuts (auto) 6.3 10^3/uL (1.4-6.5) 09/28/23 00:51
Sodium 136 mmol/L (135-145) 09/28/23 06:36
Potassium 4.2 mmol/L (3.5-5.1) 09/28/23 06:36
Chloride 104 mmol/L (98-107) 09/28/23 06:36
Carbon Dioxide 24 mmol/L (22-30) 09/28/23 06:36
BUN 39 mg/dl (7-17) H 09/28/23 06:36
Creatinine 1.5 mg/dL (0.6-1.0) H 09/28/23 06:36
Calcium 9.1 mg/dl (8.4-10.2) 09/28/23 06:36
Total Bilirubin 0.3 mg/dl (0.2-1.3) 09/28/23 00:51
AST 18 U/L (14-36) 09/28/23 00:51
ALT < 10 U/L (0-35) 09/28/23 00:51
Alkaline Phosphatase 76 U/L (38-126) 09/28/23 00:51
Diagnostic Image Results:
CXR
IMPRESSION:
Large hiatal hernia again seen.
Minor left basilar opacity most likely representing subsegmental atelectasis.
Electronically signed by Jeremías South MD, 09/28/2023 6:28 AM
Prior GI Procedures:
EGD: unable
Colonoscopy: unable
Assessment / Plan
-
83-year-old female with past medical history of dementia, depression, UTI, PE (on Eliquis), hypertension, peripheral neuropathy, osteoarthritis, anemia of chronic disease and hiatal hernia presents to the emergency room from half-way with
respiratory distress/shortness of breath. Patient was treated with DuoNeb, dose of pantoprazole labs were performed as well as chest x-ray and she was sent back to half-way. She was sent back to the emergency room 2 hours later. She was noted
to be slightly more anemic than baseline and stool was noted to be maroon/heme positive in the ER. She was referred for admission. We are asked to evaluate for the same. Patient is on Eliquis for history of PE. Unfortunately patient is demented
only oriented to self. Hemoglobin 7.5 down from 8.1, WBC 7.4, platelet 283, sodium 136, potassium 4.2, chloride 104, CO2 24, BUN 39, creatinine 1.5, glucose 93, total bilirubin 0.3, AST 18, ALT less than 10, alk phos 76
Impression:
Anemia
Maroon stool
Chronic anticoagulation (Eliquis) history of PE
Dementia
Large hiatal hernia (seen on chest imaging)
Respiratory distress, prior to arrival
Plan:
-Check Abd Xray to eval for stool burden
-Eliquis on Hold per IM
-Trend Hgb
-Continue PPI BID
-Will try to reach daughters again. Tana Silva [phone]
-Further recommendations to be forthcoming
-
-
Thank you for consultation and allowing me to participate in the patient's care. Please call the optical effects layout person GI physician during the after hours with any questions or concerns.
[2023-09-28] MEDS: NEURONTIN PO (11:37)
[2023-09-28] MEDS: DULCOLAX 10 MG RECTAL (12:36)
[2023-09-28] MEDS: MIRALAX 17 GRAMS PO ×2 (12:36→19:38)
--- NOTE | 2023-09-28 14:20 | PTCARENOTE ---
Patient transfer from 3w arrived 1400. Patient arrived in bed.
--- NOTE | 2023-09-28 14:45 | CM ---
Addendum entered by Christin Shelby 09/28/23 15:22:
Received call from Kathy at [facility]
Reports pt was full assist at baseline, able to feed self
Prior to d/c call [phone] - direct line to her unit
Original Note:
Chart reviewed and spoke with pts daughter
Pt lives at [facility] on a Memory Care unit
At baseline pt has dementia, wheel chair bound, assist with ADL's, can feed self
Daughter would like pt to return to [facility] when d/c'ed
PCP - Dr Lorie Swanson
Pharm - [facility]
Called [facility] [phone] to speak with [facility] [place] staff - LM with call back #
Plan - anticipate return to [facility] when medically stable
[2023-09-28 16:35] LABS: Hemoglobin 7.2 g/dL (12.0-16.0)
[2023-09-28] MEDS: SENOKOT 17.1999999999999993 MG PO (19:38)
[2023-09-28] MEDS: NEURONTIN 200 MG PO ×2 (19:39→22:57)
[2023-09-28] MEDS: NSS (PRESERVATIVE FREE) 10 ML IV (19:40)
[2023-09-28] MEDS: PROTONIX IV 40 MG IV (19:40)
[2023-09-29] VITALS (8 sets, daily range): BP systolic 119–196; BP diastolic 61–105
[2023-09-29 06:13] LABS: Hematocrit 21.6 % (37.0-47.0); Mean Corp Hgb Conc. 32.4 g/dL (33.0-37.0); Mean Corpuscular Hgb 31.4 pg (27.0-31.0); Mean Corpuscular Volume 96.9 fL (81.0-99.0); Platelet Count 266 10^3/uL (130-400); Red Blood Cell Count 2.23 10^6/uL (4.20-5.40); Red Cell Dist. Width 12.5 % (11.5-14.5); White Blood Cell Count 4.9 10^3/uL (4.8-10.8)
[2023-09-29 06:41] LABS: Blood Urea Nitrogen 26 mg/dl (7-17); Calcium 8.9 mg/dl (8.4-10.2); Carbon Dioxide 24 mmol/L (22-30); Chloride 104 mmol/L (98-107); Estimated Creatinine Clearance 37 ml/min; Glucose 80 mg/dl (70-99); Iron 52 ug/dl (37-170); Magnesium 1.9 mg/dl (1.6-2.3); Potassium 4.2 mmol/L (3.5-5.1); Sodium 136 mmol/L (135-145); eGFR 56.25
[2023-09-29 07:03] LABS: Ferritin 25.3 ng/ml (11.1-264.0)
[2023-09-29 07:34] LABS: Folate 10.3 ng/ml (2.76-20); Vitamin B12 317 pg/ml (239-931)
[2023-09-29] MEDS: MIRALAX 17 GRAMS PO ×2 (08:19→20:01)
[2023-09-29] MEDS: WELLBUTRIN SR (12 hour sustained release) 150 MG PO ×2 (08:23→20:00)
[2023-09-29] MEDS: LEXAPRO 20 MG PO (08:23)
[2023-09-29] MEDS: SENOKOT 17.1999999999999993 MG PO ×2 (08:24→19:59)
[2023-09-29] MEDS: COREG 25 MG PO ×2 (08:24→20:00)
[2023-09-29] MEDS: PROTONIX IV 40 MG IV ×2 (08:25→20:06)
[2023-09-29] MEDS: NSS (PRESERVATIVE FREE) 10 ML IV ×2 (08:25→20:06)
[2023-09-29] MEDS: NEURONTIN 200 MG PO (08:25)
--- NOTE | 2023-09-29 08:59 | W.PN.HOSP.TC ---
Addendum entered and electronically signed by Luis E Garcias MD 09/29/23 15:15:
SHUBHAM on CKD 3
Original Note:
Today's Communication/Plan
-
see bold
Assessment / Plan
Assessment / Plan
83y F with PMH significant for dementia, hypertension and chronic anemia who was sent to ED for evaluation of dyspnea and incidentally noted to have heme positive stool.
Worsening anemia secondary to chronic GI blood loss, exacerbated by Eliquis use
Severe iron deficiency anemia
-Hemoglobin 7.0, was 7.2, was 7.5, was 8.1 yesterday, baseline greater 9-10
-GI following, continue Protonix 40 mg IV twice daily
-Verbal consent obtained from daughter over the phone, transfuse 1 unit of packed red blood cells today
-Start ferrous sulfate, plan for discharge to [facility] tomorrow
Severe constipation
-Appreciate GI input, continue laxatives and enema as per GI
Respiratory Distress
- This was the reported reason for ED evaluation.
- Not hypoxemic. No complaints of dyspnea or evident SOB during her stay here.
- CXR unremarkable.
SHUBHAM on CKD
- SCr = 1.5 compared to baseline of 0.9.
- Hold high-dose thiazide diuretic and lisinopril acutely.
- Resolved status post IV fluids, trend creatinine
Benign Hypertension
- Stable. Holding high-dose thiazide diuretic and lisinopril acutely.
Senile Dementia
- Patient appears at described baseline.
- Continue current med regimen and monitor for evidence of acute delirium.
- From NH
History of PE
DVT Prophylaxis
- Discussed with daughter, will permanently discontinue Eliquis due to chronic GI blood loss
DVT prophylaxis�SCDs due to bloody stools
Code Status - DNR
Updated daughter
Total time spent to see the patient on the floor, examine the patient, review data and lab results, discuss treatment plan with patient, nursing staff around 35 minutes.
Physical Exam
General: No acute distress
HEENT: Normocephalic, Atraumatic, EOMI, MMM
Respiratory: Clear to Auscultation bilaterally
Cardiac: Normal S1/S2, Regular Rate and Rhythm
GI: Soft, Nontender, Nondistended, Normal Bowel Sounds
Extremities: No Clubbing, Cyanosis, or Edema
Neuro: Pleasantly confused
Psych: Calm, Cooperative
Derm: No Visible lesions
Anticipated Discharge: Within 24 hours
Subjective/Interval History
-
Date of Service: September 29, 2023
No black or bloody stools. Her stools are now brown. No fever, no vomiting.
Objective Data
-
Labs:
Laboratory Results
09/29/23
05:28
WBC 4.9
Hgb 7.0 L
Hct 21.6 L
Plt Count 266
Sodium 136
Potassium 4.2
Chloride 104
Carbon Dioxide 24
BUN 26 H
Creatinine 1.0
Glucose 80
Calcium 8.9
Vital Signs:
Vital Signs
Temp Pulse Resp BP Pulse Ox
98.3 F 77 20 119/73 98
09/29/23 07:13 09/29/23 08:24 09/29/23 07:13 09/29/23 08:24 09/29/23 07:13
I&O
09/28/23 09/29/23 09/30/23
06:59 06:59 06:59
Intake Total 1140 / 1140
Balance 1140 / 1140
--- NOTE | 2023-09-29 09:49 | W.PN.GI.CBS2 ---
Today's Communication / Plan
-
enema, xray
Assessment / Plan
-
83-year-old female with past medical history of dementia, depression, UTI, PE (on Eliquis), hypertension, peripheral neuropathy, osteoarthritis, anemia of chronic disease and hiatal hernia presents to the emergency room from [facility] with
respiratory distress/shortness of breath. Patient was treated with DuoNeb, dose of pantoprazole labs were performed as well as chest x-ray and she was sent back to custodial. She was sent back to the emergency room 2 hours later. She was noted
to be slightly more anemic than baseline and stool was noted to be maroon/heme positive in the ER. She was referred for admission. We are asked to evaluate for the same. Patient is on Eliquis for history of PE. Unfortunately patient is demented
only oriented to self. Hemoglobin 7.5 down from 8.1, WBC 7.4, platelet 283, sodium 136, potassium 4.2, chloride 104, CO2 24, BUN 39, creatinine 1.5, glucose 93, total bilirubin 0.3, AST 18, ALT less than 10, alk phos 76
Impression:
Anemia
Maroon stool
Chronic anticoagulation (Eliquis) history of PE
Dementia
Large hiatal hernia (seen on chest imaging)
Respiratory distress, prior to arrival
Was discussed with family yesterday with dementia plan for no endoscopic evaluation
Recommendation:
- Additional enema this am d/w RN
- Xray this afternoon
- If fecal burden improved GI will sign off pt will need bowel regimen going forward; if fecal burden still present will do additional enemas
Subjective
Subjective
Date of Service: September 29, 2023
per nurse pt with large BM after enema last pm
patient confused yelling at me for being in her house
Objective
Data Reviewed
Laboratory Data:
Laboratory Results
09/29/23 05:28
09/29/23 05:28
Laboratory Results
Phosphorus 4.0 mg/dl (2.5-4.5) 09/29/23 05:28
Magnesium 1.9 mg/dl (1.6-2.3) 09/29/23 05:28
Total Bilirubin 0.3 mg/dl (0.2-1.3) 09/28/23 00:51
AST 18 U/L (14-36) 09/28/23 00:51
ALT < 10 U/L (0-35) 09/28/23 00:51
Alkaline Phosphatase 76 U/L (38-126) 09/28/23 00:51
Vital Signs and I&O:
Vital Signs
Temp Pulse Resp BP Pulse Ox
98.3 F 77 20 119/73 98
09/29/23 07:13 09/29/23 08:24 09/29/23 07:13 09/29/23 08:24 09/29/23 07:13
I&O
09/28/23 09/29/23 09/30/23
06:59 06:59 06:59
Intake Total 1140 / 1140
Balance 1140 / 1140
Physical Exam
Physical Exam
GI: Non Distended and Non Tender
--- NOTE | 2023-09-29 13:52 | PN.CDI ---
CDI
- -
CDI:
Physician Documentation Request
Admit Date: 09/28/23 03:02
Dear Doctor Do,
Please review the following and provide your response in the progress notes.
Clinical Indicators:
- 09/27 PN 'SHUBHAM on CKD
Laboratory Tests
09/28/23 09/28/23 09/29/23
00:51 06:36 05:28
Creatinine 1.5 H 1.5 H 1.0
eGFR 34.58 34.58 56.25
Clarify which of the following accurately represents the patient's renal status:
SHUBHAM on CKD 2
SHUBHAM on CKD 3
Other
Stages of Chronic Kidney Disease*
Level Description GFR
G1 Normal or High >90
G2 Mildly decreased 60-89
G3a Mildly to moderately decreased 45-59
G3b Moderately to severely decreased 30-44
G4 Severely decreased 15-29
G5 Kidney failure <15
Use of terms such as suspected, likely, concern for, or probable (associated with a specific diagnosis that is being evaluated, monitored, or treated as if it exists) are acceptable and can be coded in the inpatient setting, when documented at the
time of discharge.
Thank you,
Buddy Cuellar RN
CDI Specialist
Please use your independent medical judgment in providing your response.
*Source: Kidney Disease: Improving Global Outcomes (KDIGO) 2012
--- NOTE | 2023-09-29 14:12 | PN.CDI ---
CDI
- -
CDI:
Physician Documentation Request
Admit Date: 09/28/23 03:02
Dear Doctor Do,
Please review the following and provide your response in the progress notes.
Clinical Indicators:
- 09/27 PN 'Heme positive stool...acute on chronic anemia'
- 'Hold Eliquis acutely given heme positive stools'
Laboratory Tests
09/28/23 09/28/23 09/29/23
00:51 16:24 05:28
Hgb 8.1 L 7.2 L 7.0 L
Please clarify the relationship between these conditions:
Yes, _acute anemia__ is related to/associated with/due to _eliquis__.
No, _acute anemia__ is not related to/associated with/due to __eliquis_ but it is due to . (Please specify)
Unable to determine
Use of terms such as suspected, likely, concern for, or probable (associated with a specific diagnosis that is being evaluated, monitored, or treated as if it exists) are acceptable and can be coded in the inpatient setting, when documented at the
time of discharge.
Thank you,
Buddy Cuellar RN
CDI Specialist
Please use your independent medical judgment in providing your response.
--- NOTE | 2023-09-29 16:01 | CM ---
Patient for possible discharge on 09/30/23 back to [facility]. Admissions notified.
[2023-09-29] MEDS: NSS 1000 IV (16:21)
[2023-09-29] MEDS: DUPHALAC/CHRONULAC PO (16:22)
[2023-09-29] MEDS: FEOSOL PO (16:22)
--- NOTE | 2023-09-29 17:39 | W.PN.UPDATE ---
Update Note
Progress Note Update
X-ray order sent I discussed with nursing. Concerned that patient will not tolerate enema she was not able to hold it. Therefore we will give suppository. X-ray improved but still with stool burden.
[2023-09-29] MEDS: DULCOLAX 10 MG RECTAL (18:28)
[2023-09-29] MEDS: XANAX 0.25 MG PO (20:01)
[2023-09-29] MEDS: DUPHALAC/CHRONULAC 20 GRAMS PO (20:14)
[2023-09-29] MEDS: TYLENOL 1000 MG PO (20:20)
[2023-09-30 00:51] VITALS: BP 194/105
[2023-09-30 02:00] VITALS: BP 164/79
--- NOTE | 2023-09-30 04:05 | DOWNTIME ---
There was a [employer] Downtime on 09/30/2023 from 0100 to 09/30/2023 at 0337. Downtime documentation of patient's care, including medication administrations, has been reconciled in the electronic record per guidelines. Refer to the
patient's paper chart under the miscellaneous tab to see printed paper medication records and downtime forms.
--- NOTE | 2023-09-30 06:24 | PTCARENOTE ---
Addendum entered by Sana Moreno RN 09/30/23 06:31:
Pt with 3 large dark stools mixed with hard stools after lactulose given.
Original Note:
Pt hypertensive at beginning of shift 194/105, 88, RR 26, Pox 94% RA, T-98.3. Manual BP 196/104, 84. Pt aaox1, however does not appear in distress. lungs diminished with fine crackles throughout. call center dispatcher SO[employer] CR[employer] SHEDDER made aware,no new orders. PRN Tylenol
and Ativan given, bp rechecked and slightly lower than initial bp 177/90.
[2023-09-30 07:08] VITALS: BP 184/88
[2023-09-30] MEDS: MIRALAX 17 GRAMS PO (07:46)
[2023-09-30] MEDS: FEOSOL 325 MG PO (07:48)
[2023-09-30] MEDS: WELLBUTRIN SR (12 hour sustained release) 150 MG PO (07:48)
[2023-09-30] MEDS: SENOKOT 17.1999999999999993 MG PO (07:49)
[2023-09-30] MEDS: COREG 25 MG PO (07:49)
[2023-09-30] MEDS: LEXAPRO 20 MG PO (07:49)
[2023-09-30] MEDS: DUPHALAC/CHRONULAC 20 GRAMS PO (07:49)
[2023-09-30] MEDS: PROTONIX IV 40 MG IV (07:53)
[2023-09-30] MEDS: NSS (PRESERVATIVE FREE) 10 ML IV (07:53)
[2023-09-30 08:50] LABS: Hematocrit 27.6 % (37.0-47.0); Mean Corp Hgb Conc. 32.6 g/dL (33.0-37.0); Mean Corpuscular Hgb 32.3 pg (27.0-31.0); Mean Corpuscular Volume 98.9 fL (81.0-99.0); Mean Platelet Volume 9.8 fL (7.4-10.4); Platelet Count 281 10^3/uL (130-400); Red Blood Cell Count 2.79 10^6/uL (4.20-5.40); White Blood Cell Count 5.6 10^3/uL (4.8-10.8)
--- NOTE | 2023-09-30 08:51 | W.PN.HOSP.TC ---
Today's Communication/Plan
-
Discharge today
Assessment / Plan
Assessment / Plan
83y F with PMH significant for dementia, hypertension and chronic anemia who was sent to ED for evaluation of dyspnea and incidentally noted to have heme positive stool.
Worsening anemia secondary to chronic GI blood loss, exacerbated by Eliquis use
Severe iron deficiency anemia
-Hemoglobin 7.0, was 7.2, was 7.5, was 8.1 yesterday, baseline greater 9-10
-GI following, currently on Protonix 40 mg IV twice daily, will discharge on Protonix 40 mg p.o. daily
-Hemoglobin 9.0 today, increased from 7.0 status post 1 unit of packed red blood cells on 09/28
-Started ferrous sulfate, plan for discharge to skilled nursing today
Severe constipation
-Appreciate GI input, continue laxatives and enema as per GI
-Continue MiraLAX twice a day and sennosides twice a day upon discharge
Iatrogenic fluid overload
-Give Lasix 40 mg IV x 2
-Discharged on Lasix 40 mg p.o. daily
-Permanently discontinue her hydrochlorothiazide 50 mg daily
Respiratory Distress
- This was the reported reason for ED evaluation.
- Not hypoxemic. No complaints of dyspnea or evident SOB during her stay here.
- CXR unremarkable.
SHUBHAM on Stage 3 CKD
- SCr = 1.5 compared to baseline of 0.9.
- Hold high-dose thiazide diuretic and lisinopril acutely.
- Resolved status post IV fluids, trend creatinine
Benign Hypertension
- Stable. Resume lisinopril 20 mg daily, add hydralazine 25 mg twice a day
Senile Dementia
- Patient appears at described baseline.
- Continue current med regimen and monitor for evidence of acute delirium.
- From NH
History of PE
DVT Prophylaxis
- Discussed with daughter, will permanently discontinue Eliquis due to chronic GI blood loss
DVT prophylaxis�SCDs due to bloody stools
Code Status - DNR
Updated daughter on phone 09/28
Physical Exam
General: No acute distress
HEENT: Normocephalic, Atraumatic, EOMI, MMM
Respiratory: Clear to Auscultation bilaterally
Cardiac: Normal S1/S2, Regular Rate and Rhythm
GI: Soft, Nontender, Nondistended, Normal Bowel Sounds
Extremities: No Clubbing, Cyanosis, or Edema
Neuro: Pleasantly confused
Psych: Calm, Cooperative
Derm: No Visible lesions
Anticipated Discharge: Today
Subjective/Interval History
-
Date of Service: September 29, 2023
Patient has no complaints. She is having multiple bowel movements, brown. No fever, no vomiting.
Objective Data
-
Labs:
Laboratory Results
09/29/23
05:28
WBC 4.9
Hgb 7.0 L
Hct 21.6 L
Plt Count 266
Sodium 136
Potassium 4.2
Chloride 104
Carbon Dioxide 24
BUN 26 H
Creatinine 1.0
Glucose 80
Calcium 8.9
Vital Signs:
Vital Signs
Temp Pulse Resp BP Pulse Ox
98.3 F 77 20 119/73 98
09/29/23 07:13 09/29/23 08:24 09/29/23 07:13 09/29/23 08:24 09/29/23 11:31
I&O
09/28/23 09/29/23 09/30/23
06:59 06:59 06:59
Intake Total 1140 / 1140
Balance 1140 / 1140
[2023-09-30 09:29] LABS: Blood Urea Nitrogen 18 mg/dl (7-17); Calcium 9.3 mg/dl (8.4-10.2); Carbon Dioxide 24 mmol/L (22-30); Chloride 104 mmol/L (98-107); Estimated Creatinine Clearance 42 ml/min; Glucose 79 mg/dl (70-99); Potassium 3.8 mmol/L (3.5-5.1); Sodium 136 mmol/L (135-145); eGFR > 60.00
--- NOTE | 2023-09-30 09:45 | W.PN.GI.CBS2 ---
Addendum entered and electronically signed by Ariana Velasquez MD 09/30/23 14:03:
I saw and examined the patient.
The COMIC BOOK WRITER or PA's note was reviewed and I agree with the note.
Comment: 83 yo F pmh as below including dementia GI consulted for fecal impaction.
Improved s/p enema and suppository.
Xray reviewed.
Continue bowel regimen.
GI will sign off pls call with ?s
Original Note:
Today's Communication / Plan
-
Trend H&H and transfuse as needed to maintain hemoglobin greater than 7. Await x-ray to evaluate for ongoing stool burden. Monitor bowel movements. Continue bowel regimen
Assessment / Plan
-
The patient is an 83-year-old female with past medical history of dementia, depression, UTI, PE (on Eliquis), hypertension, peripheral neuropathy, osteoarthritis, anemia of chronic disease and hiatal hernia presents to the emergency room from
[facility] with respiratory distress/shortness of breath. Patient was treated with DuoNeb, dose of pantoprazole labs were performed as well as chest x-ray and she was sent back to [facility]. She was sent back to the emergency room 2 hours
later. She was noted to be slightly more anemic than baseline and stool was noted to be maroon/heme positive in the ER. She was referred for admission. We are asked to evaluate for the same. Patient is on Eliquis for history of PE.
Unfortunately patient is demented only oriented to self. Hemoglobin was down to 7.0 s/p 1 unit of PRBC up to 9. She has no signs of bleeding currently per nursing. She was found to have a large stool burden and was treated with an enema and
suppository and has been having multiple brown bowel movements per nursing.
Problem list:
-Anemia
-Maroon stool
-Chronic anticoagulation (Eliquis) history of PE
-Dementia
-Large hiatal hernia (seen on chest imaging)
-Respiratory distress, prior to arrival
Recommendation:
-Etiology of rectal bleeding unclear, possibly diverticular versus stercoral inflammation given constipation versus other. Cannot exclude malignancy as cause. This bleeding has since subsided.
-She is moving her bowels well status post enema and suppository per nursing.
-Repeat x-ray pending this morning to evaluate for stool burden
-For now continue bowel regimen as ordered and to adjust based on stool response
-She should continue her diet as tolerated
-Will await x-ray for further recommendations.
-Trend H&H and transfuse to maintain hemoglobin greater than 7.
-It was previously discussed with the family and they have declined endoscopic evaluation.
Subjective
Subjective
Date of Service: September 30, 2023
The patient was seen and examined at the bedside. She offers no complaints. Per nursing she had multiple bowel movements overnight and 1 this morning. She reports they are brown in color. Her hemoglobin is stable at 9.0 after 1 unit of packed
red blood cells she is tolerating her diet.
Objective
Data Reviewed
Laboratory Data:
Laboratory Results
09/30/23 08:21
09/30/23 08:21
Laboratory Results
Phosphorus 4.0 mg/dl (2.5-4.5) 09/29/23 05:28
Magnesium 1.9 mg/dl (1.6-2.3) 09/29/23 05:28
Total Bilirubin 0.3 mg/dl (0.2-1.3) 09/28/23 00:51
AST 18 U/L (14-36) 09/28/23 00:51
ALT < 10 U/L (0-35) 09/28/23 00:51
Alkaline Phosphatase 76 U/L (38-126) 09/28/23 00:51
Vital Signs and I&O:
Vital Signs
Temp Pulse Resp BP Pulse Ox
97.8 F 75 18 184/88 96
09/30/23 07:08 09/30/23 07:49 09/30/23 07:08 09/30/23 07:49 09/30/23 07:08
I&O
09/29/23 09/30/23 10/01/23
06:59 06:59 06:59
Intake Total 1140 / 1140 1230 / 1230
Balance 1140 / 1140 1230 / 1230
Physical Exam
Physical Exam
HEENT: Anicteric
Cardiology: S1 and S2 (Regular rate/rhythm)
Pulmonary: Clear
GI: Soft, Non Distended, Non Tender and Normal Bowel Sounds
Extremities: No Edema
[2023-09-30 10:52] LABS: Transferrin 235 mg/dL (200-360)
--- NOTE | 2023-09-30 10:59 | CM ---
Patient for d/c to [facility] today.
Kathy and Georges from [facility] updated re d/c.
Patient will require ambulance transport.
IMM completed, reviewed with daughter Tana via phone.
Will update Tana with transport time.
[facility]
Report to Georges- p# [phone]
[2023-09-30 11:10] VITALS: BP 161/82
[2023-09-30] MEDS: LASIX 40 MG IV ×2 (11:14→14:03)
--- NOTE | 2023-09-30 11:38 | W.DCSUMMARY ---
Discharge Summary
Discharge Data
Date of Admission: 09/28/23
Date of Discharge: 09/30/23
-
Pending Results: No
Hospital Course
Discharge diagnosis:
Worsening anemia secondary to chronic gastrointestinal blood loss, exacerbated by Eliquis use
Severe iron deficiency anemia
Severe constipation with fecal impaction
Iatrogenic fluid overload
Acute kidney injury superimposed on stage III chronic kidney disease
Benign essential hypertension
Senile dementia
History of pulmonary embolism
Consults: GI
Hospital course:
83-year-old female with a past medical history of pulmonary embolism on Eliquis, senile dementia, hypertension, and chronic kidney disease was sent from her memory care unit for shortness of breath and wheezing. Upon arrival to the ER, she did not
appear or report shortness of breath. She was not hypoxic. She was not wheezing. She was found to be anemic with heme positive stools. Patient is currently on Eliquis for her history of pulmonary embolism.
Patient was seen in conjunction with GI. Her Eliquis was held. Patient's power of senior attorney/daughter wish to proceed with conservative management. She was treated with Protonix 40 mg IV twice daily. Her hemoglobin was 8.1 upon admission, trended
down to 7.0. She was transfused 1 unit of packed red blood cells, her hemoglobin improved to 9.0. She has severe iron deficiency anemia from chronic GI blood loss exacerbated by Eliquis use. She was started on ferrous sulfate, and can continue
Protonix 40 mg p.o. daily upon discharge. It was discussed with patient's daughter/power of senior attorney that the safer alternative is to permanently discontinue Eliquis. Patient's daughter/power of senior attorney agreed.
Patient was noted to be severely constipated with a fecal impaction. She was treated with an aggressive bowel regimen and Dulcolax suppository. She did not tolerate her enema. Her constipation resolved. She will need to continue MiraLAX twice a
day, sennosides twice a day, and Dulcolax suppository weekly upon discharge.
Patient also had acute kidney injury superimposed on stage III chronic kidney disease. Her creatinine was 1.5 upon admission. Her hydrochlorothiazide and lisinopril were held. She received IV fluids, her creatinine normalized.
Patient's hospital course was complicated by iatrogenic fluid overload from receiving IV fluids and blood products. She received Lasix 40 mg IV x 2. Her fluid status improved. She will be discharged on Lasix 40 mg p.o. daily. Her previous
hydrochlorothiazide 50 mg p.o. daily will be permanently discontinued.
Patient's blood pressure trended up. She was resumed on a decreased dose of lisinopril 20 mg p.o. daily, she used to be on 40 mg p.o. daily. She was also started on hydralazine 25 mg twice a day.
Patient's multiple medical conditions have been optimized. She needs to follow-up with her primary care doctor in 1 week.
Disposition: [facility]
Discharge planning: Required 45 minutes
Discharge Plan
-
Patient Disposition: Assisted/SNF
Discharge Diagnosis/Procedures: Severe constipation, chronic GI blood loss anemia exacerbated by Eliquis, benign essential hypertension, dementia, acute kidney injury
Condition: Fair
Diet: Regular
Activity: As tolerated
Blood Work: BMP and CBC 10/05/23
Referrals:
Andrea Swanson MD [Family Provider] - in one week
Prescriptions:
New
sennosides [Senna Laxative] 8.6 mg Tablet
17.2 mg PO BID Qty: 0 0RF
polyethylene glycol 3350 [HealthyLax] 17 gram Powder In Packet
17 g PO BID Qty: 0 0RF
lisinopril 20 mg Tablet
20 mg PO DAILY Qty: 0 0RF
ferrous sulfate [FeroSul] 325 mg (65 mg iron) Tablet
325 mg PO DAILY Qty: 0 0RF
bisacodyl [Dulcolax (bisacodyl)] 10 mg suppository
10 mg TN WEEKLY Qty: 30 0RF
pantoprazole 40 mg tablet,delayed release (DR/EC)
40 mg PO DAILY Qty: 30 0RF
hydralazine 25 mg tablet
25 mg PO BID Qty: 60 0RF
furosemide [Lasix] 40 mg tablet
40 mg PO DAILY Qty: 30 0RF
potassium chloride 10 mEq capsule, extended release
10 meq PO DAILY Qty: 30 0RF
Continued
gabapentin 300 MG capsule
300 mg PO BID
escitalopram oxalate 20 MG tablet
20 mg PO DAILY
bupropion HCl 150 MG tablet sustained-release 12 hr
150 mg PO BID
carvedilol 25 mg tablet
25 mg PO BID
Saccharomyces boulardii [Probiotic (S.boulardii)] 250 mg Capsule
250 mg PO BID
acetaminophen 325 MG tablet
1,000 mg PO Q8HPRN PRN (Reason: pain) Qty: 0 0RF
albuterol sulfate 2.5 mg /3 mL (0.083 %) Solution For Nebulization
2.5 mg INHALATION Q6H PRN (Reason: wheezing)
gabapentin 400 mg Capsule
400 mg PO HS
alprazolam 0.25 mg Tablet
0.25 mg PO TID PRN (Reason: anxiety)
cholecalciferol (vitamin D3) [Vitamin D3] 50 mcg (2,000 unit) Capsule
50 mcg PO DAILY
Discontinued
hydrochlorothiazide 50 mg tablet
50 mg PO DAILY
lisinopril 40 mg tablet
40 mg PO DAILY
apixaban 5 mg Tablet
5 mg PO BID
celecoxib 200 mg Capsule
200 mg PO BID
Discharge Orders:
Discharge Patient (As Directed); Ordered 09/30/23
Ordered By: Luis E Garcias
Discharge Date and Time
Discharge Date/Time: 09/30/23 15:07
Print Language: [id number]
[2023-09-30] MEDS: ZESTRIL 20 MG PO (11:50)
== END 2023-09-30 15:07 | DRG 378 ==
LOC: 2 NORTH 03:02
PROVIDERS: Physician Assistant; ADMITTING PHYSICIAN Hospitalist; ATTENDING PHYSICIAN Family Medicine; CONSULT PHYSICIAN Internal Medicine Gastroenterology; EMERGENCY PHYSICIAN Emergency Medicine; FAMILY PHYSICIAN Family Medicine
PROC: 30233N1 Transfusion of Nonautologous Red Blood Cells into Peripheral Vein, Percutaneous Approach (ICD-10-PCS; 2023-09-29)
DX: K92.2 Gastrointestinal hemorrhage, unspecified (principal); D68.32 Hemorrhagic disorder due to extrinsic circulating anticoagulants; F03.94 Unspecified dementia, unspecified severity, with anxiety; R06.02 Shortness of breath; R06.03 Acute respiratory distress; F32.A Depression, unspecified; N18.30 Chronic kidney disease, stage 3 unspecified; I12.9 Hypertensive chronic kidney disease with stage 1 through stage 4 chronic kidney disease, or unspecified chronic kidney disease; D63.1 Anemia in chronic kidney disease; G62.9 Polyneuropathy, unspecified; D50.0 Iron deficiency anemia secondary to blood loss (chronic); M19.90 Unspecified osteoarthritis, unspecified site; K59.00 Constipation, unspecified; K44.9 Diaphragmatic hernia without obstruction or gangrene; Z66 Do not resuscitate; Z86.711 Personal history of pulmonary embolism; Z79.01 Long term (current) use of anticoagulants; Z79.1 Long term (current) use of non-steroidal anti-inflammatories (NSAID); Z87.01 Personal history of pneumonia (recurrent); Z87.440 Personal history of urinary (tract) infections
CPT/HCPCS: 71046; 74018; 80048; 80053; 82607; 82728; 82746; 83540; 83735; 84100; 84466; 85018; 85025; 85027; 86850; 86900; 86901; 86920; 93005; 94640; 96374; 99285; P9016